=== PATIENT | male | born 1960 | race Caucasian/White ===

== ENCOUNTER 2018-05-17 12:03 | Emergency (ER) | payer MEDICARE, MEDICAID ==
--- NOTE | 2018-05-17 12:37 | RAD ---
FOUR VIEWS LEFT KNEE: History: Patient heard loud sound in left knee while walking. Evaluate for pathology. FINDINGS: AP, lateral and both oblique views left knee obtained. Four views of the left knee demonstrates no evidence of left knee fractures, subluxations, or bony le sions. IMPRESSION: Normal four views left knee. POS: [facility]
== END 2018-05-17 12:50 | disposition home or self-care (01) ==
LOC: SCSER 12:03
DX: S83.92XA Sprain of unspecified site of left knee, initial encounter (principal); I10 Essential (primary) hypertension; Z79.899 Other long term (current) drug therapy; Z79.82 Long term (current) use of aspirin; X50.1XXA Overexertion from prolonged static or awkward postures, initial encounter

== ENCOUNTER 2022-08-06 11:06 | Outpatient (CLI) | payer MEDICARE, MEDICAID | END 2022-08-06 11:07 | disposition home or self-care (01) | LOC: MRI 11:06 | PROVIDERS: ATTEND Nurse Practitioner Family | DX: M54.14 Radiculopathy, thoracic region (principal) | CPT/HCPCS: 72146 ==

== ENCOUNTER 2022-10-01 17:30 | Outpatient (CLI) | payer MEDICARE, MEDICAID | END 2022-10-01 17:31 | disposition home or self-care (01) | LOC: SLEEPLAB 17:30 | PROVIDERS: ATTEND Family Medicine | DX: G47.33 Obstructive sleep apnea (adult) (pediatric) (principal); G47.61 Periodic limb movement disorder; E66.9 Obesity, unspecified; R06.83 Snoring; I25.10 Atherosclerotic heart disease of native coronary artery without angina pectoris; I10 Essential (primary) hypertension; G47.00 Insomnia, unspecified; R09.02 Hypoxemia; Z68.35 Body mass index [BMI] 35.0-35.9, adult | CPT/HCPCS: 95800 ==

== ENCOUNTER 2023-03-06 12:05 | Outpatient (CLI) | payer MEDICARE, MEDICAID | END 2023-03-06 12:06 | disposition home or self-care (01) | LOC: BICCT 12:05 | PROVIDERS: ATTEND Nurse Practitioner Family | DX: R10.2 Pelvic and perineal pain (principal); R10.30 Lower abdominal pain, unspecified; R30.0 Dysuria; Z87.19 Personal history of other diseases of the digestive system | CPT/HCPCS: 74177 ==